=== PATIENT | female | born 1965 | race Caucasian/White ===

== ENCOUNTER → 2024-09-26 17:00 | Outpatient (REF) | payer OTHER, SELFPAY | LOC: WDC 17:00 | PROVIDERS: ATTENDING PHYSICIAN Obstetrics & Gynecology Gynecology | DX: Z12.39 Encounter for other screening for malignant neoplasm of breast (principal); Z12.31 Encounter for screening mammogram for malignant neoplasm of breast | CPT/HCPCS: 77063; 77067 ==